=== PATIENT | male | born 1955 | race Caucasian/White ===

== ENCOUNTER 2023-12-14 05:07 | Day surgery (SDC) | payer OTHER ==
[~2023-12-14 05:07] MED LIST: CIPRO500 MG PO
[2023-12-14] MEDS ORDERED: MIDAZOLAM HCL 2 MG/2 ML VIAL IV ONE (10:15)
[2023-12-14] MEDS ORDERED: DIPHENHYDRAMINE HCL 50 MG/ML VIAL 1ML IV ONE (10:15)
[2023-12-14] MEDS ORDERED: fentaNYL CITRATE 50 MCG/ML AMPUL IV ONE (10:15)
== END 2023-12-14 11:55 | disposition home or self-care (01) ==
LOC: AMB-ENDOS 05:07
PROVIDERS: ATTEND Surgery
DX: D12.3 Benign neoplasm of transverse colon (principal); K63.5 Polyp of colon; K64.8 Other hemorrhoids; K57.30 Diverticulosis of large intestine without perforation or abscess without bleeding